=== PATIENT | male | born 2000 | race Caucasian/White ===

== ENCOUNTER 2022-08-25 02:18 | Emergency (ER) | payer SELFPAY ==
[2022-08-25 02:29] VITALS: BP 145/74; PULSE 80; RESP 18; TEMP 36.8; O2SAT 100; BMI 23.9
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
[2022-08-25] MEDS: ONDANSETRON 4 MG ODT PREPACK 1 BOTTLE MISC (03:03)
[2022-08-25] MEDS: IBUPROFEN 400 MG TABLET PO (03:04)
[2022-08-25] MEDS: ONDANSETRON 4 MG ODT SL (03:04)
[2022-08-25] MEDS: ACETAMINOPHEN 325 MG TABLET PO (03:04)
[2022-08-25 03:16] VITALS: BP 132/77; PULSE 84; RESP 16; O2SAT 99
== END 2022-08-25 03:16 | disposition home or self-care (01) ==
PROVIDERS: Emergency Provider Emergency Medicine
DX: S06.0X0A Concussion without loss of consciousness, initial encounter (principal); R11.0 Nausea; Y04.8XXA Assault by other bodily force, initial encounter
CPT/HCPCS: 99283